=== PATIENT | female | born 1970 | race Caucasian/White ===

== ENCOUNTER 2019-01-07 12:11 | Day surgery (SDC) | payer BC ==
[2019-01-07] MEDS ORDERED: Depo-Medrol 40 MG/ML IM ONE (12:12)
[2019-01-07] MEDS ORDERED: Xylocaine-Mpf 2% 5 Ml Vial IJ ONE (12:12)
[2019-01-07] MEDS ORDERED: DIPRIVAN 200 MG/20 ML IV ONE (13:13)
[2019-01-07] MEDS ORDERED: Ketamine HCl 50 MG/ML ONE (13:14)
--- NOTE | 2019-01-07 14:56 | XRAY ---
Indication: Bilateral T7-T10 MBB. Intraoperative fluoroscopy was provided for 18 seconds. Single digital spot image submitted for interpretation demonstrates posterior needle tips projecting over the expected course of the left and right T7-T10 nerve roots. Correlate with intraoperative findings/report.
--- NOTE | 2019-01-07 15:17 | XRAY ---
18 seconds fluoroscopy time in surgery for bilateral T7-T10 MBB.
[2019-01-07] MEDS ORDERED: Lactated Ringers 1,000 ML IV ONE (16:46)
== END 2019-01-07 13:49 | disposition home or self-care (01) ==
LOC: SDC-PAIN 12:11
PROVIDERS: ATTEND Psychiatry & Neurology Pain Medicine
DX: M47.816 Spondylosis without myelopathy or radiculopathy, lumbar region (principal); Z79.899 Other long term (current) drug therapy
CPT/HCPCS: 64490; 64491; 72020; 77002; 84703; J1030; J2704

== ENCOUNTER 2019-02-25 12:38 | Day surgery (SDC) | payer BC ==
[2019-02-25] MEDS ORDERED: Marcaine 0.5% SDV 10 ML IJ ONE (12:39)
[2019-02-25] MEDS ORDERED: Xylocaine 1% Vial 30 ML PF IJ ONE (12:39)
[2019-02-25] MEDS ORDERED: Depo-Medrol 40 MG/ML IM ONE (12:39)
[2019-02-25] MEDS ORDERED: DIPRIVAN 200 MG/20 ML IV ONE (13:29)
[2019-02-25] MEDS ORDERED: Lactated Ringers 1,000 ML IV ONE (14:01)
--- NOTE | 2019-02-25 16:35 | XRAY ---
Indication: Bilateral T7-T10 MBB. Intraoperative fluoroscopy was provided for 41 seconds. Single digital spot image submitted for interpretation demonstrates posterior needle tips projecting over the expected course of the left and right T7-T10 nerve roots. Correlate with intraoperative findings/report.
--- NOTE | 2019-02-25 16:47 | XRAY ---
41 seconds fluoroscopy time in surgery for bilateral T7-T10 MBB.
== END 2019-02-25 13:58 | disposition home or self-care (01) ==
LOC: SDC-PAIN 12:38
PROVIDERS: ATTEND Psychiatry & Neurology Pain Medicine
DX: M47.816 Spondylosis without myelopathy or radiculopathy, lumbar region (principal); K21.9 Gastro-esophageal reflux disease without esophagitis; M79.7 Fibromyalgia; Z79.899 Other long term (current) drug therapy
CPT/HCPCS: 64491; 64492; 72020; 77002; 84703; J1030; J2001; J2704

== ENCOUNTER 2019-07-22 13:15 | Day surgery (SDC) | payer BC ==
[2019-07-22] MEDS ORDERED: Depo-Medrol 40 MG/ML IM ONE (13:16)
[2019-07-22] MEDS ORDERED: Marcaine 0.5% SDV 10 ML IJ ONE (13:16)
[2019-07-22] MEDS ORDERED: Xylocaine 1% Vial 30 ML PF IJ ONE (13:16)
[2019-07-22] MEDS ORDERED: Ketamine HCl 50 MG/ML ONE (14:01)
[2019-07-22] MEDS ORDERED: DIPRIVAN 200 MG/20 ML IV ONE ×2 (14:01→14:08)
[2019-07-22] MEDS ORDERED: TORAdol 30 mg Injection ONE (14:29)
[2019-07-22] MEDS ORDERED: Lactated Ringers 1,000 ML IV ONE (14:54)
--- NOTE | 2019-07-22 15:02 | XRAY ---
Indication: Left T7-T10 RFA. Intraoperative fluoroscopy was provided for 17 seconds. 3 digital spot images submitted for interpretation demonstrates posterior needle tips projecting over the expected course of the left T7-T10 nerve roots. Correlate with intraoperative findings/report.
--- NOTE | 2019-07-22 16:34 | XRAY ---
17 seconds fluoroscopy time in surgery for left T7-T10 RFA.
== END 2019-07-22 14:30 | disposition home or self-care (01) ==
LOC: SDC-PAIN 13:15
PROVIDERS: ATTEND Psychiatry & Neurology Pain Medicine
DX: M47.814 Spondylosis without myelopathy or radiculopathy, thoracic region (principal)
CPT/HCPCS: 64633; 64634; 72072; 77002; J1030; J1885; J2001; J2704

== ENCOUNTER 2019-10-28 13:04 | Day surgery (SDC) | payer BC ==
[2019-10-28] MEDS ORDERED: Marcaine 0.5% SDV 10 ML IJ ONE (13:05)
[2019-10-28] MEDS ORDERED: Depo-Medrol 40 MG/ML IM ONE (13:05)
[2019-10-28] MEDS ORDERED: Xylocaine 1% Vial 30 ML PF IJ ONE (13:05)
--- NOTE | 2019-10-28 16:41 | XRAY ---
24 seconds fluoroscopy time in surgery for right hip intra-articular injection.
--- NOTE | 2019-10-31 20:18 | XRAY ---
Indication: Right hip intra-articular injection. Intraoperative fluoroscopy was provided for 24 seconds. A single AP digital spot image submitted for interpretation demonstrates the needle tip to be at the lateral aspect of the base of the right femoral head. Some contrast has been injected through the needle tip into the joint. Correlate with intraoperative findings/report.
== END 2019-10-28 14:10 | disposition home or self-care (01) ==
LOC: SDC-PAIN 13:04
PROVIDERS: ATTEND Psychiatry & Neurology Pain Medicine
DX: M16.11 Unilateral primary osteoarthritis, right hip (principal); M79.7 Fibromyalgia; K21.9 Gastro-esophageal reflux disease without esophagitis; Z79.899 Other long term (current) drug therapy
CPT/HCPCS: 20610; 73501; 77002; J1030; J2001; Q9966

== ENCOUNTER 2022-01-31 14:19 | Day surgery (SDC) | payer OTHER ==
[2022-01-31] MEDS ORDERED: Marcaine Mpf 0.5% Vial 30 Ml IJ ONE (14:20)
[2022-01-31] MEDS ORDERED: Depo-Medrol 40 MG/ML IM ONE (14:20)
[2022-01-31] MEDS ORDERED: Xylocaine 1% Vial 30 ML PF IJ ONE (14:20)
[2022-01-31] MEDS ORDERED: DIPRIVAN 200 MG/20 ML IV ONE (15:22)
--- NOTE | 2022-01-31 17:32 | XRAY ---
Indication: Left T7-T10 RFA. Intraoperative fluoroscopy provided for 37 seconds. Single digital spot image submitted for interpretation demonstrates posterior needle tips projecting over the expected left T7-T10 nerve roots. Correlate with intraoperative findings/report.
--- NOTE | 2022-01-31 17:46 | XRAY ---
37 seconds fluoroscopy time in surgery for left T7-T10 RFA.
== END 2022-01-31 15:55 | disposition home or self-care (01) ==
LOC: SDC-PAIN 14:19
PROVIDERS: ATTEND Psychiatry & Neurology Pain Medicine
DX: M47.814 Spondylosis without myelopathy or radiculopathy, thoracic region (principal); Z79.899 Other long term (current) drug therapy
CPT/HCPCS: 01939; 64633; 64634; 72072; 77002; J1030; J2001; J2704

== ENCOUNTER 2023-04-16 10:11 | Day surgery (SDC) | payer OTHER ==
[~2023-04-16 10:11] MED LIST: CEFAZOLIN 2 GM-D5W BAG** 2 GM/50 ML ML IV SCH; Lactated Ringers 1,000 ML IV SCH
[2023-04-16 10:34] VITALS: RESP 18
[2023-04-16] MEDS ORDERED: Marcaine Mpf 0.5% Vial 30 Ml ONE (10:41)
[2023-04-16] MEDS ORDERED: Lactated Ringers 1,000 ML IV ONE (10:41)
[2023-04-16] MEDS ORDERED: Xylocaine 1% Vial 30 ML PF IJ ONE (10:41)
[2023-04-16 10:49] LABS: Hematocrit 37.7 % (35-47); Mean Cell Volume 89.3 fL (78-100); Mean Corpuscular Hemoglobin 28.4 pg (26-32); Mean Corpuscular Hgb Concent. 31.8 g/dL (32-36); Mean Platelet Volume 9.8 fL (7.5-11.0); Platelet Count 219 x10^3/uL (150-450); Red Blood Count 4.22 x10^6/uL (4.1-5.4); Red Cell Distribution Width 13.3 % (11.5-14.0); White Blood Count 5.4 x10^3/uL (4.0-10.5)
[2023-04-16 11:03] LABS: ALBUMIN 4.3 g/dL (3.5-5.0); ANION GAP 12.9 MEQ/L (5-15); BILIRUBIN,TOTAL 0.4 mg/dL (0.2-1.3); Calcium 9.2 mg/dL (8.4-10.2); Creatinine 1 0.77 mg/dL (0.52-1.04); EST GLOMERULAR FILTRATION RATE 92.8 ML/MIN; Potassium 4.7 mmol/L (3.5-5.1); Total Protein 7.3 g/dL (6.3-8.2)
[2023-04-16 11:04] LABS: INR 1.05 (0.8-3.0); PROTIME 11.4 SECONDS (9.4-12.5); PTT 27.9 SECONDS (25.1-36.5)
[2023-04-16] MEDS ORDERED: DIPRIVAN 200 MG/20 ML IV ONE (11:39)
[2023-04-16] MEDS ORDERED: Zofran 4 MG/2 ML VIAL ONE (11:40)
[2023-04-16] MEDS ORDERED: Zemuron 100 MG/10 ML ONE ×2 (11:40→13:39)
[2023-04-16] MEDS ORDERED: Xylocaine-Mpf 2% 5 Ml Vial ONE (11:40)
[2023-04-16] MEDS ORDERED: Decadron 4 MG INJ ONE (11:40)
[2023-04-16] MEDS ORDERED: SUBLIMAZE 100 MCG/2 ML ONE (11:41)
[2023-04-16] MEDS ORDERED: Versed 2 MG/2 ML Injection ONE (11:41)
[2023-04-16] MEDS ORDERED: PHENYLEPHRINE HCL ONE (13:48)
--- NOTE | 2023-04-16 13:48 | XRAY ---
Indication: Pain. Comparison: None 3 weightbearing views left foot demonstrates osteopenia, mild pes planus, and tiny heel spurs. No other bony, articular, or soft tissue abnormalities.
[2023-04-16] MEDS ORDERED: BRIDION 200MG/2ML IV ONE (14:22)
--- NOTE | 2023-04-16 14:50 | XRAY ---
Indication: Left foot plantar plate repair, hammertoe correction, and 2nd metatarsal Mary osteotomy. Intraoperative fluoroscopy provided for 27 seconds. 9 digital spot images submitted for interpretation demonstrates 2nd metatarsal head Mary osteotomy and 2nd toe fusion both with intact screws. Correlate with intraoperative findings/report.
[2023-04-16] MEDS ORDERED: Oxy-IR 5 MG PO SCH (15:24)
[2023-04-16 15:41] VITALS: O2SAT 100
[2023-04-16 16:14] VITALS: BP 119/72; PULSE 98; TEMP 98
--- NOTE | 2023-04-17 09:01 | OP ---
SURGERY DATE/TIME: 04/16/2023 1301 PREOPERATIVE DIAGNOSES: 1) Plantar plate tear left. 2) Hypermobility foot, left. 3) Left foot pain. 4) Hammer toe. 5) Metatarsal deformity. POSTOPERATIVE DIAGNOSES: 1) Plantar plate tear left. 2) Hypermobility foot, left. 3) Left foot pain. 4) Hammer toe. 5) Metatarsal deformity. PROCEDURES: 1) Plantar plate repair second metatarsophalangeal joint left foot. 2) Hammer toe correction. 3) Mary osteotomy. SURGEON: Braydon Clement DPM. EMERGENCY MEDICAL SERVICES COORDINATOR: None. ANESTHESIA: General plus of intraoperative block consisting of 10 cc of a 1:1 mixture of 1% lidocaine plain and 0.5% bupivacaine plain injected in a metatarsal block-type fashion. HEMOSTASIS: Ankle tourniquet set to 250 mm of Mercury for approximately 50 total tourniquet minutes. ESTIMATED BLOOD LOSS: Minimal. INJECTABLES: 10 cc of a 1:1 mixture of 1% lidocaine plain and 0.5% bupivacaine plain. 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 The patient had responded relatively well with injections in the past. However, these injections have been progressively becoming less consistent in their relief as well as further contracture of the second digit and pain as a result. The patient has failed all conservative modalities leading up to this point and had exhausted these modalities to the point where nothing definitively helped for an extended period of time. At this time the patient understands all risks, complications and benefits of surgical intervention including but not limited to infection, hematoma, seroma, possibility of delayed wound healing, nonwound healing and possible need for surgical intervention at a later date. No guarantees were provided as to the outcome of surgical intervention. However, the goal for the procedure is not necessarily cosmetic but to alleviate the patient's pain primarily underneath the ball of the foot. Initially, the patient was consented for possible bunion procedure. After reviewing weight bearing views of the left foot, it does appear that there is not a significant amount of hypermobility of the first ray associated with the bunion and there is a likelihood that the patient may not need this procedure in order to do well. As a result the patient understands that following the procedure she will have to be in a pair of orthotics which was discussed at length and the patient has been amenable to this leading up to the surgical intervention anyway. The patient understands this. Plenty of time was allowed for the patient to ask questions which were answered to her apparent satisfaction. No guarantees were provided as to the outcome. It is with that we decided to proceed. DESCRIPTION OF PROCEDURE AND FINDINGS: The patient was brought into the OR and placed on the OR table in the supine position. At this time, the patient was placed under general anesthesia and a well-padded ankle tourniquet was applied to the patient's left ankle. From this standpoint, the left foot was prepped and draped in the typical sterile fashion and lowered onto the surgical field. At this time, a metatarsal block was performed utilizing 10 cc of a 1:1 mixture of 1% lidocaine plain and 0.5% bupivacaine plain injected in a metatarsal block to the left foot. Following this, Esmarch was utilized to exsanguinate the leg. The tourniquet was then inflated to 250 mm of Mercury. An incision was made dorsally over the second metatarsophalangeal joint first dissecting out the extensor hallucis longus tendon and performing a Z-plasty lengthening tenotomy to this tendon to reflect it out of the surgical site, this was carried out and retracted off the site this was carried out and retracted off of the site utilizing two curved mini-hemostat and a 15 blade. Careful dissection was carried. J-stroke was performed at the second metatarsophalangeal joint. Following this, exposure of the second metatarsophalangeal joint head demonstrated adequate bone quality and an 18 mm sagittal saw was used to resect the metatarsal head being perpendicular to the weight bearing surface and shifting the metatarsal head posteriorly this was pinned in place and a 2.0 x 14 mm small headed screw was introduced from a dorsal orientation making sure not to exit plantarly. As a result, the overhang of the metatarsal was then cleansed. Direct visualization of the plantar plate was then made and completion of the tear was performed utilizing a 15 blade. Following this, drill holes were made at the dorsal aspect of the second metatarsal head and the MaxBraid was introduced utilizing two utilizing two Antonio needles through the plantar aspect of the foot. Single skin hooks were then utilized to retrieve the MaxBraid and then a Hewson was then introduced into the base of the proximal phalanx just at the plantar aspect of the metatarsophalangeal joint retrieving the ends of the wire and driving up through the second proximal phalanx, this was tied down securing the metatarsophalangeal joint in a position that we deemed appropriate for healing. Following this, osteotomy was performed utilizing 18 mm sagittal saw to the proximal interphalangeal joint where it was resected completely and a K-wire was then retrograded down to the tip of the toe and anterograded down the proximal phalanx following the longitudinal cortex of the bone as reference. At this time, a 40 x 2.5 mm VPC screw was introduced gaining excellent compression in this site. At this time finals were taken. The 4-0 Monocryl was then utilized to repair the extensor tendon and the 4-0 Monocryl was utilized in a simple interrupted fashion to coapt the skin edges along with 4-0 Nylon which was utilized to coapt the skin edges in everted-type fashion. A dressing consisting of Betadine, Adaptic, 4x4, Kerlix and JENA was applied to the patient's left lower extremity. The patient was then reversed from anesthesia and returned to the postoperative anesthesia care unit with vital signs stable and vascular status intact. The patient handled the anesthesia as well as the procedure without significant complication. Postoperative orders as indicated in the patient's discharge chart.
--- NOTE | 2023-04-17 12:16 | XRAY ---
27 seconds of fluoroscopy was used in surgery for a left plantar plate repair, hammertoe correction, Mary osteotomy 2nd metatarsal.
== END 2023-04-16 16:10 | disposition home or self-care (01) ==
LOC: SDC 10:11
PROVIDERS: ATTEND Podiatrist Foot & Ankle Surgery
DX: S96.812A Strain of other specified muscles and tendons at ankle and foot level, left foot, initial encounter (principal); M35.7 Hypermobility syndrome; M79.672 Pain in left foot; M20.42 Other hammer toe(s) (acquired), left foot; M21.6X2 Other acquired deformities of left foot
CPT/HCPCS: 01470; 01480; 27695; 28200; 28285; 28308; 36415; 73630; 76000; 80053; 85027; 85610; 85730; C1713; J0690; J1100; J2001; J2250; J2371; J2405; J2704; J3010; A9270-GY

== ENCOUNTER 2024-04-08 15:23 | Day surgery (SDC) | payer OTHER ==
[2024-04-08] MEDS ORDERED: BUPIVACAINE 0.5% VIAL IJ ONE (15:24)
[2024-04-08] MEDS ORDERED: Depo-Medrol 40 MG/ML IM ONE (15:24)
[2024-04-08] MEDS ORDERED: LIDOCAINE HCL 1% AMPUL 5 ML IJ ONE (15:24)
[2024-04-08] MEDS ORDERED: DIPRIVAN 200 MG/20 ML IV ONE ×2 (16:48→17:01)
--- NOTE | 2024-04-08 18:58 | XRAY ---
Indication: Left T7-T9 RFA. Intraoperative fluoroscopy provided for 32 seconds. Single digital spot image submitted for interpretation demonstrates posterior needle tips projecting over the expected left T7-T9 nerve roots. Correlate with intraoperative findings/report.
--- NOTE | 2024-04-09 08:51 | XRAY ---
32 seconds of fluoroscopy was used in surgery for a left T7-T9 RFA.
== END 2024-04-08 17:26 | disposition home or self-care (01) ==
LOC: SDC-PAIN 15:23
PROVIDERS: ATTEND Psychiatry & Neurology Pain Medicine
DX: M47.816 Spondylosis without myelopathy or radiculopathy, lumbar region (principal)
CPT/HCPCS: 64633; 64634; 72072; 77002; J2704

== ENCOUNTER 2025-04-27 08:02 | Day surgery (SDC) | payer BC ==
[2025-04-27] MEDS ORDERED: CEFAZOLIN SODIUM ONE (08:08)
[2025-04-27] MEDS ORDERED: NEURONTIN ONE (08:08)
[2025-04-27] MEDS ORDERED: TYLENOL EXTRA STRENGTH 500 MG ONE (08:08)
[2025-04-27] MEDS ORDERED: Pepcid 20 MG VIAL IV ONE (08:08)
[2025-04-27] MEDS ORDERED: Lactated Ringers 1,000 ML IV ONE ×2 (08:09→11:02)
[2025-04-27] MEDS ORDERED: Decadron 4 MG ONE (08:09)
[2025-04-27] MEDS ORDERED: celeBREX 100 MG ONE (08:09)
[2025-04-27] MEDS: Decadron 4 MG PO ONE (08:13)
[2025-04-27] MEDS: TYLENOL EXTRA STRENGTH 500 MG PO ONE (08:13)
[2025-04-27] MEDS: Pepcid 20 MG PO ONE (08:14)
[2025-04-27] MEDS: NEURONTIN PO ONE (08:14)
[2025-04-27] MEDS: celeBREX 100 MG PO ONE (08:14)
[2025-04-27] MEDS: Lactated Ringers 1,000 ML IV SCH (08:15)
[2025-04-27 08:33] LABS: Hematocrit 36.9 % (34.1-44.9); Hemoglobin 11.4 g/dL (11.2-15.7); Mean Corpuscular Hemoglobin 26.6 pg (25.6-32.2); Mean Corpuscular Hgb Concent. 30.9 g/dL (32.2-35.5); Platelet Count 230 x10^3/uL (182-369); Red Blood Count 4.28 x10^6/uL (3.93-5.22); White Blood Count 4.9 x10^3/uL (3.98-10.04)
[2025-04-27 08:50] LABS: Calcium 9.0 mg/dL (8.4-10.2); Carbon Dioxide 27.0 mmol/L (22-30); Creatinine 1 0.85 mg/dL (0.52-1.04); EST GLOMERULAR FILTRATION RATE 81.4 ML/MIN; Glucose 91.0 mg/dL (74-106); Potassium 4.1 mmol/L (3.5-5.1); SGOT/AST 27.0 U/L (14-36); SGPT/ALT 17.0 U/L (0-35); Total Protein 7.4 g/dL (6.3-8.2)
[2025-04-27] MEDS ORDERED: propofoL IV ONE (09:04)
[2025-04-27] MEDS ORDERED: Marcaine Mpf 0.5% Vial 30 Ml ONE (09:12)
[2025-04-27] MEDS ORDERED: EXPAREL 133 MG/10 ML VIAL IJ ONE (09:12)
[2025-04-27] MEDS ORDERED: Versed 2 MG/2 ML Injection ONE (10:08)
[2025-04-27] MEDS ORDERED: Zofran 4 MG/2 ML VIAL ONE (10:47)
[2025-04-27] MEDS ORDERED: SUBLIMAZE 100 MCG/2 ML ONE ×2 (12:21→14:18)
--- NOTE | 2025-04-27 13:05 | XRAY ---
Indication: Left foot lapidus arthrodesis, possibly medial collateral ligament repair, 3rd metatarsal Mary osteotomy, possible plantar plate repair, 3rd digit flexor tenotomy, and possible pinning. Intraoperative fluoroscopy provided for 3 minute 33 seconds. 8 digital spot images submitted for interpretation demonstrates 1st tarsometatarsal arthrodesis and 3rd metatarsal head Mary osteotomy both with intact hardware. Correlate with intraoperative findings/report.
[2025-04-27 14:44] VITALS: RESP 16
[2025-04-27 14:57] VITALS: BP 135/87; PULSE 85; TEMP 98.8; O2SAT 100
--- NOTE | 2025-04-27 14:57 | XRAY ---
3 minutes and 33 seconds of fluoroscopy was used in surgery for a left foot lapidus arthrodesis, possibly medial collateral ligament repair, 3rd metatarsal Mary osteotomy, possible plantar plate repair, 3rd digit flexor tenotomy, and possible pinning.
--- NOTE | 2025-04-29 08:02 | OP ---
SURGERY DATE/TIME: 04/27/2025 5827-3251 PREOPERATIVE DIAGNOSES: 1) Hallux valgus, left foot. 2) Hypermobility of 1st ray. 3) Scar tissue over 2nd metatarsophalangeal joint with limited range of motion 2nd metatarsophalangeal joint. 4) Plantar plate injury 3rd metatarsophalangeal joint and hammertoe 3rd digit. POSTOPERATIVE DIAGNOSES: 1) Hallux valgus, left foot. 2) Hypermobility of 1st ray. 3) Scar tissue over 2nd metatarsophalangeal joint with limited range of motion 2nd metatarsophalangeal joint. 4) Plantar plate injury 3rd metatarsophalangeal joint. 5) Hammertoe 3rd digit. PROCEDURES: 1) Lapidus arthrodesis 1st metatarsophalangeal joint, left foot. 2) Capsulotomy and scar tissue release of 2nd metatarsophalangeal joint. 3) Mary osteotomy 3rd metatarsal. 4) Plantar plate repair 3rd metatarsophalangeal joint, left foot. 5) Flexor tenotomy 3rd digit, left foot. SURGEON: Braydon Clement DPM. LICENSED MARINE ENGINEER: None. ANESTHESIA: General plus preoperative popliteal and saphenous block. HEMOSTASIS: Thigh tourniquet set to 320 mmHg for a total of 60 total tourniquet minutes. ESTIMATED BLOOD LOSS: Approximately 5 mL. MATERIALS: 4-0 Monocryl, 3-0 nylon, Lapiplasty Biplanar plating with 2.0 x 14 partially-threaded headed screws for the Mary osteotomy and a 2.0 ActivBraid for the plantar plate repair for the 3rd metatarsophalangeal joint. INJECTABLES: See Anesthesia report for details. INDICATIONS: The patient is a very pleasant 55-year-old female who is known to my service for a plantar plate repair that was performed approximately 3 years ago, resulted in significant pain relief to the 2nd MPJ, however, hypermobility had increased and her hallux valgus had increased resulting in increasing pain as time went on to the 3rd MPJ where some of the transfer of that pressure and the pain resulted in an increase in overload and laxity to this metatarsophalangeal joint. It was discussed with the patient that prior to her hallux valgus was not significant but she did have hypermobility and if this was dealt with conservatively the issue would likely not return. In the patient's case, the issue did return, however, not to the same metatarsophalangeal joint. She was managed appropriately and conservatively for approximately 3 years. However, at this time she wishes to proceed with surgical intervention in order to addressed the hypermobility, which I do believe is the biggest component to the patient's pain due to the lesser metatarsal overload. With that being said, we discussed the game plan for several months now and the patient has been made aware of all risk, complications, and benefits of surgical intervention at this time including, but not limited to, infection, hematoma, seroma, possibility of delayed wound healing, non-wound healing, possibility of nonunion of the Lapidus arthrodesis site, and possibility of need for further surgical intervention at a later date. No guarantees were provided as to the outcome. Plenty of time was allowed for the patient to ask questions, which were answered to her apparent satisfaction. It is at this time we decided to proceed. DESCRIPTION OF PROCEDURE AND FINDINGS: The patient was brought into the PACU prior to the procedure and provided a popliteal and saphenous block. See Anesthesia report for details. Following this, the patient was brought into the operating room and placed on the operating room table in the supine position. General anesthesia was administered until the patient was adequately sedated. A well-padded thigh tourniquet was applied to the patient's left thigh and set to 320 mmHg. At this time, the left lower extremity was prepped and draped in the typical sterile fashion and lowered onto the surgical field. At this time, attention was directed to the 1st tarsometatarsal joint where a linear incision was made after Esmarching the leg and inflating the tourniquet. Linear incision was made just medial to the extensor hallucis longus tendon. This was deepened, being careful not to damage any neurovascular structures, until the 1st tarsometatarsal joint was identified. When the joint was identified, the tarsometatarsal joint was delineated and freed of its soft tissue attachments. The 41 mm sagittal saw was then utilized to free any capsular attachments and the medial overhang of the medial aspect of the 1st MPJ. From that standpoint, once this occurred the fulcrum was placed into the 1st, 2nd tarsometatarsal joints through, freeing up this area and getting it into position. Once it was assessed under perfect circles on the C-arm and the relative amounts of resection were seen at the level of the 1st metatarsal as well as medial cuneiform, we did go ahead and resect with the 41 mm sagittal saw. This was then distracted and the articular cartilage was then removed from the site. This area was then flushed with copious amounts of sterile saline and then fenestrated utilizing a 2 mm drill. Once this occurred then compression was held utilizing the jig and then pin fixation was utilized to hold the compression through this site. The Lapiplasty Biplanar Plating System with 90-90 plating was then applied utilizing 2.7, 14 and 12 mm screws. Position was assessed and deemed to be in an adequate position with great apposition of the bone and good compression of the site. From that standpoint, this was assessed with a footplate and did seemingly plantarflex the 1st ray relative to the remainder of the metatarsals, reducing the incidence of hypermobility. From that standpoint, we did move forward to the 3rd metatarsophalangeal joint a linear incision was made directly over the metatarsophalangeal joint. This was carried down to the level of the extensor digitorum longus where a lengthening tenotomy was performed of this tendon. It was then retracted out of the way. Capsulotomy was then performed and then the resection of the reminder of the plantar plate was performed. Mary osteotomy was then performed utilizing an 18 mm sagittal saw, pushing this approximately 4 mm posteriorly and then pinning with a 2.0 x 14 mm partially-threaded headed screw. Once this was achieved, the plantar plate with assessed. Then, a 2.0 MaxBraid was then pulled through the plantar surface of the foot utilizing 2 Antonio needles drilled dorsally through the metatarsal head and then retrograded utilizing a Hewson through the proximal phalanx. This was then tied off in a plantarflexed position. Assessment was made and decision was made to go forward with the flexor tenotomy to the 3rd digit, which resulted in release of the flexor tendon. From that standpoint, everything was assessed. There was some tightness to the 2nd MPJ relative to the remainder of the metatarsophalangeal joints and decision was made to proceed with removal of the scar tissue as well as a capsulotomy at the dorsal aspect of the 2nd MPJ, which resulted in approximately 15 degrees more range of motion which occurred freely. From that standpoint, copious amounts of sterile saline were utilized to flush the surgical sites. 4-0 Monocryl was utilized to coapt the subcutaneous edges of the skin in a simple interrupted buried-type fashion; 3-0 nylon was then utilized to coapt the skin edges in a horizontal mattress-type fashion. A dressing consisting of Betadine, Adaptic, 4 x 4, Kerlix, ABD, and Hair was applied to the patient's left lower extremity. The patient was provided a cam boot and then returned to the postoperative anesthesia care unit with vital signs stable and vascular status intact. The patient handled the anesthesia as well as the procedure without significant complication. Postoperative orders as indicated in the patient's discharge chart.
== END 2025-04-27 15:10 | disposition home or self-care (01) ==
LOC: SDC 08:02
PROVIDERS: ATTEND Podiatrist Foot & Ankle Surgery
DX: M20.12 Hallux valgus (acquired), left foot (principal); M35.7 Hypermobility syndrome; Z74.09 Other reduced mobility; M20.42 Other hammer toe(s) (acquired), left foot

== ENCOUNTER 2025-05-20 16:09 | Day surgery (SDC) | payer BC ==
[2025-05-20] MEDS ORDERED: BUPIVACAINE 0.5% VIAL IJ ONE (16:10)
[2025-05-20] MEDS ORDERED: methylPREDNISolone acetate IM ONE (16:10)
[2025-05-20] MEDS ORDERED: LIDOCAINE HCL 1% 50 MG/5 ML VL IJ ONE (16:10)
--- NOTE | 2025-05-20 20:04 | XRAY ---
Indication: Right hip injection. Intraoperative fluoroscopy provided for 14 seconds. Single digital spot image submitted for interpretation demonstrates needle tip projecting lateral to right femur neck. Small amount of contrast injected for needle tip placement. Correlate with intraoperative findings/report.
--- NOTE | 2025-05-21 09:00 | XRAY ---
14 seconds of fluoroscopy were used in surgery for a right intra-articular hip injection.
== END 2025-05-20 18:10 | disposition home or self-care (01) ==
LOC: SDC-PAIN 16:09
PROVIDERS: ATTEND Psychiatry & Neurology Pain Medicine
DX: M16.11 Unilateral primary osteoarthritis, right hip (principal)